=== PATIENT | male | born 1935 | race Hispanic/Latino ===

== ENCOUNTER 2022-03-11 14:48 | Inpatient (IN) | payer MEDICARE ==
[2022-03-11 15:53] LABS: #Eosinphils 0.1 thou/uL (0.0-0.7); #Lymphocytes 1.1 thou/uL (1.20-3.40); #Monocytes 0.8 thou/uL (0.11-0.59); #Neutrophils 7.5 thou/uL (1.40-6.50); %Basophils 0.3 % (0.0-1.0); %Eosinophils 0.5 % (0.0-10.0); %Lymphocytes 11.9 % (21.0-51.0); %Monocytes 8.6 % (0.0-10.0); %Neutrophils 78.7 % (42.0-75.0); Hemoglobin 16.4 g/dL (14.0-18.0); Mean Corpuscular HGB CONC 31.2 g/dL (32.0-36.0); Mean Corpuscular Hemoglobin 33.1 pg (27.0-31.0); Mean Platelet Volume 7.6 fL (7.4-10.4); Platelet Count 120 thou/uL (130-400); RBC Distribution Width 13.4 % (11.5-14.5); Red Blood Cell (RBC) Count 4.96 mill/uL (4.70-6.10); White Blood Cell (WBC) Count 9.6 thou/uL (4.8-10.8)
[2022-03-11 16:01] LABS: INR-International Normal Ratio 1.7; Prothrombin Time 20.2 sec (12.0-14.7)
[2022-03-11 16:13] LABS: ALT (SGPT) 34 U/L (8-55); AST (SGOT) 151 U/L (5-34); Albumin 3.4 g/dL (3.4-4.8); Alkaline Phosphatase 435 U/L (40-110); Anion Gap 15 mmol/L (10-20); BUN (Urea Nitrogen) 14 mg/dL (8.4-25.7); Bilirubin, Total 3.1 mg/dL (0.2-1.2); Calc. Creatinine Clearance 0 mL/min (70-130); Carbon Dioxide 28 mmol/L (23-31); Chloride 96 mmol/L (98-107); Glucose 119 mg/dL (83-110); Protein, Total 7.4 g/dL (5.8-8.1); Sodium 134 mmol/L (136-145)
[2022-03-11 16:14] LABS: MDiff Complete? YES; Macrocytosis SLIGHT = 6-15 cells (100X) (0-5/hpf); Platelet Morphology Comment Appears Decreased; Polychromasia SLIGHT = 2-3 cells (100X) (0-2/hpf)
[2022-03-11 16:53] LABS: CKMB 1.9 ng/mL (0-6.6)
[2022-03-11 17:23] LABS: Bilirubin 1+ (Negative); Blood, Urine Negative (Negative); Glucose, Urine (Dipstick) Normal (Negative); Ketone, Urine 20 mg/dL (Negative); Leukocyte 500 Leu/uL (Negative); Nitrite Negative (Negative); Protein, Urine (Dipstick) 50 mg/dL (Neg-Trace); RBC/HPF 0-3 HPF (0-3); Specific Gravity, Urine 1.028 (1.002-1.036); Squamous Epithelial 0-3 HPF (0-3); Urobilinogen 6 mg/dL (Less than 2); pH, Urine 5.5 (5.0-9.0)
[2022-03-11 17:25] LABS: Bacteria/HPF 1+ HPF (None Seen); Clarity Cloudy (Clear)
[2022-03-11] MEDS ORDERED: cefTRIAXone\\ROCEPHIN 1 GM VIAL ONE (17:38)
[2022-03-11] MEDS ORDERED: Azithromycin 500 MG VIAL ONE (18:56)
[2022-03-11] MEDS ORDERED: Azithromycin 500 MG in Sodium Chloride 0.9% 250 ML 250 ML IVPB SCH (19:15)
[2022-03-11] MEDS ORDERED: Ondansetron PF 4 MG/2 ML Vial IVP PRN (20:20)
[2022-03-11] MEDS ORDERED: Ondansetron ODT 4 MG TAB PO PRN (20:20)
[2022-03-11] MEDS ORDERED: HumaLOG 300 UNITS/3 ML VIAL SC PRN ×2 (20:20)
[2022-03-11] MEDS ORDERED: Dextrose 50% Abboject 50 ML SYRINGE SLOW IVP PRN (20:20)
[2022-03-11] MEDS ORDERED: Acetaminophen 650 MG Suppository PR PRN (20:20)
[2022-03-11] MEDS ORDERED: Dextrose 5% in Water 1,000 ML IV PRN (20:20)
[2022-03-11 20:37] LABS: Troponin I 0.027 ng/mL (< 0.028)
[2022-03-11 20:48] VITALS: BMI 27.3
[2022-03-11 22:46] LABS: Troponin I 0.031 ng/mL (< 0.028)
[2022-03-11] MEDS ORDERED: Apixaban 5 MG TAB PO SCH (23:00)
[2022-03-12 05:28] LABS: #Eosinphils 0.1 thou/uL (0.0-0.7); #Lymphocytes 1.2 thou/uL (1.20-3.40); #Monocytes 0.9 thou/uL (0.11-0.59); #Neutrophils 6.8 thou/uL (1.40-6.50); %Basophils 0.2 % (0.0-1.0); %Eosinophils 1.1 % (0.0-10.0); %Lymphocytes 13.5 % (21.0-51.0); %Monocytes 9.8 % (0.0-10.0); %Neutrophils 75.4 % (42.0-75.0); Hemoglobin 14.8 g/dL (14.0-18.0); Mean Corpuscular HGB CONC 32.9 g/dL (32.0-36.0); Mean Corpuscular Hemoglobin 34.8 pg (27.0-31.0); Mean Platelet Volume 7.4 fL (7.4-10.4); Platelet Count 98 thou/uL (130-400); RBC Distribution Width 13.4 % (11.5-14.5); Red Blood Cell (RBC) Count 4.26 mill/uL (4.70-6.10)
[2022-03-12 05:43] LABS: Anion Gap 11 mmol/L (10-20); BUN (Urea Nitrogen) 12 mg/dL (8.4-25.7); Calc. Creatinine Clearance 69 mL/min (70-130); Calcium 9.5 mg/dL (7.8-10.44); Carbon Dioxide 24 mmol/L (23-31); Chloride 100 mmol/L (98-107); Glucose 83 mg/dL (83-110); Potassium 4.2 mmol/L (3.5-5.1); Sodium 131 mmol/L (136-145)
[2022-03-12] MEDS: Levothyroxine Sodium 100 MCG TAB PO SCH (06:07)
[2022-03-12] MEDS ORDERED: Enoxaparin Sodium 40 MG/0.4 ML SYRINGE SC SCH (09:00)
[2022-03-12] MEDS: Apixaban 5 MG TAB PO SCH ×3 (10:00→21:48)
[2022-03-12 12:15] LABS: RBC Count-Automated (BF) 263 /cu.mm; WBC/Nucleated-Auto (BF) 188 /cu.mm
[2022-03-12 12:21] LABS: SARS-CoV-2 PCR by NAA Not Detected (NotDetected)
[2022-03-12 12:35] LABS: Body Fluid Source Ascites Body Fluid; Clarity Clear (Clear); Tube # EDTA
[2022-03-12 12:36] LABS: BF Color Yellow
[2022-03-12 12:37] LABS: BF Segmented Neutrophils 4 %; Cell Count Non Hematic 49 %; Lymphocytes 47 %
[2022-03-12] MEDS ORDERED: Azithromycin 500 MG in Sodium Chloride 0.9% 250 ML 250 ML IVPB SCH (18:00)
[2022-03-12] MEDS: cefTRIAXone\\ROCEPHIN 1 GM in Sodium Chloride 0.9% 100 ML IVPB SCH (19:42)
[2022-03-12] MEDS: Atorvastatin Calcium 10 MG TAB PO SCH (21:03)
[2022-03-13] MEDS: Levothyroxine Sodium 100 MCG TAB PO SCH (06:46)
[2022-03-13] MEDS: Acetaminophen 325 MG TAB PO PRN (13:18)
[2022-03-13] MEDS ORDERED: Azithromycin 500 MG in Sodium Chloride 0.9% 250 ML 250 ML IVPB SCH (18:00)
[2022-03-13] MEDS: cefTRIAXone\\ROCEPHIN 1 GM in Sodium Chloride 0.9% 100 ML IVPB SCH (18:40)
[2022-03-13] MEDS: Atorvastatin Calcium 10 MG TAB PO SCH (20:36)
[2022-03-13] MEDS: Azithromycin 500 MG in Sodium Chloride 0.9% 250 ML 250 ML IVPB SCH (21:55)
[2022-03-14] MEDS: Levothyroxine Sodium 100 MCG TAB PO SCH (05:27)
[2022-03-14 05:31] LABS: ALT (SGPT) 29 U/L (8-55); AST (SGOT) 142 U/L (5-34); Albumin 2.6 g/dL (3.4-4.8); Alkaline Phosphatase 346 U/L (40-110); Anion Gap 13 mmol/L (10-20); BUN (Urea Nitrogen) 12 mg/dL (8.4-25.7); Bilirubin, Total 2.5 mg/dL (0.2-1.2); Calc. Creatinine Clearance 71 mL/min (70-130); Calcium 9.3 mg/dL (7.8-10.44); Carbon Dioxide 23 mmol/L (23-31); Chloride 101 mmol/L (98-107); Glucose 72 mg/dL (83-110); Protein, Total 5.6 g/dL (5.8-8.1); Sodium 133 mmol/L (136-145)
[2022-03-14] MEDS: cefTRIAXone\\ROCEPHIN 1 GM in Sodium Chloride 0.9% 100 ML IVPB SCH (17:47)
[2022-03-14] MEDS: Atorvastatin Calcium 10 MG TAB PO SCH (20:42)
[2022-03-14] MEDS: Azithromycin 500 MG in Sodium Chloride 0.9% 250 ML 250 ML IVPB SCH (20:43)
[2022-03-15 04:43] LABS: Alpha-Fetoprotein,Tumor Marker 3.9 ng/mL (0.89-8.78)
[2022-03-15] MEDS: Levothyroxine Sodium 100 MCG TAB PO SCH (06:20)
[2022-03-15] MEDS: cefTRIAXone\\ROCEPHIN 1 GM in Sodium Chloride 0.9% 100 ML IVPB SCH (17:06)
[2022-03-15] MEDS: Lidocaine 4% Topical Sol 50 ML BOT TOP SCH (20:43)
[2022-03-15] MEDS: Atorvastatin Calcium 10 MG TAB PO SCH (20:43)
[2022-03-15] MEDS: Azithromycin 500 MG in Sodium Chloride 0.9% 250 ML 250 ML IVPB SCH (20:50)
[2022-03-16] MEDS: Levothyroxine Sodium 100 MCG TAB PO SCH (05:29)
[2022-03-16] MEDS: Lidocaine 4% Topical Sol 50 ML BOT TOP SCH ×3 (08:27→20:52)
[2022-03-16] MEDS: cefTRIAXone\\ROCEPHIN 1 GM in Sodium Chloride 0.9% 100 ML IVPB SCH (17:17)
[2022-03-16] MEDS: Azithromycin 500 MG in Sodium Chloride 0.9% 250 ML 250 ML IVPB SCH (20:48)
[2022-03-16] MEDS: Acetaminophen 325 MG TAB PO PRN (20:49)
[2022-03-16] MEDS: Atorvastatin Calcium 10 MG TAB PO SCH (20:49)
[2022-03-17] MEDS: Levothyroxine Sodium 100 MCG TAB PO SCH (06:13)
[2022-03-17] MEDS: Lidocaine 4% Topical Sol 50 ML BOT TOP SCH ×3 (08:01→21:06)
[2022-03-17 08:09] LABS: INR-International Normal Ratio 1.4; Prothrombin Time 17.7 sec (12.0-14.7)
[2022-03-17 08:18] LABS: Mean Corpuscular HGB CONC 32.2 g/dL (32.0-36.0); Mean Corpuscular Hemoglobin 34.1 pg (27.0-31.0); RBC Distribution Width 13.5 % (11.5-14.5); Red Blood Cell (RBC) Count 4.41 mill/uL (4.70-6.10)
[2022-03-17 08:19] LABS: ALT (SGPT) 36 U/L (8-55); AST (SGOT) 167 U/L (5-34); Albumin 2.6 g/dL (3.4-4.8); Alkaline Phosphatase 439 U/L (40-110); Anion Gap 14 mmol/L (10-20); BUN (Urea Nitrogen) 14 mg/dL (8.4-25.7); Bilirubin, Total 2.6 mg/dL (0.2-1.2); Calc. Creatinine Clearance 63 mL/min (70-130); Calcium 9.1 mg/dL (7.8-10.44); Carbon Dioxide 21 mmol/L (23-31); Chloride 101 mmol/L (98-107); Globulin 3.1 g/dL (2.4-3.5); Glucose 75 mg/dL (83-110); Potassium 4.3 mmol/L (3.5-5.1); Protein, Total 5.7 g/dL (5.8-8.1); Sodium 132 mmol/L (136-145)
[2022-03-17 08:29] LABS: #Eosinphils 0.1 thou/uL (0.0-0.7); #Lymphocytes 1.1 thou/uL (1.20-3.40); #Monocytes 0.8 thou/uL (0.11-0.59); #Neutrophils 8.3 thou/uL (1.40-6.50); %Basophils 0.3 % (0.0-1.0); %Eosinophils 0.8 % (0.0-10.0); %Monocytes 7.7 % (0.0-10.0); %Neutrophils 80.2 % (42.0-75.0); Mean Platelet Volume 7.9 fL (7.4-10.4); Platelet Count 100 thou/uL (130-400); Platelet Morphology Comment Appears Decreased; White Blood Cell (WBC) Count 10.3 thou/uL (4.8-10.8)
[2022-03-17] MEDS ORDERED: Senokot 8.6 MG TAB PO PRN (11:13)
[2022-03-17] MEDS ORDERED: Senokot 8.6 MG TAB PO SCH (11:15)
[2022-03-17] MEDS: cefTRIAXone\\ROCEPHIN 1 GM in Sodium Chloride 0.9% 100 ML IVPB SCH (17:09)
[2022-03-17] MEDS: Atorvastatin Calcium 10 MG TAB PO SCH (21:05)
[2022-03-17] MEDS: Azithromycin 500 MG in Sodium Chloride 0.9% 250 ML 250 ML IVPB SCH (21:05)
[2022-03-18] MEDS: Levothyroxine Sodium 100 MCG TAB PO SCH (05:53)
[2022-03-18] MEDS: Acetaminophen 325 MG TAB PO PRN ×2 (07:55→15:43)
[2022-03-18] MEDS: Lidocaine 4% Topical Sol 50 ML BOT TOP SCH ×3 (08:48→21:57)
[2022-03-18] MEDS ORDERED: Fentanyl 100 MCG/2 ML VIAL ONE (10:42)
[2022-03-18] MEDS ORDERED: Sodium Bicarbonate 2.5 MEQ/5 ML VIAL ONE (10:42)
[2022-03-18] MEDS ORDERED: Midazolam HCl 2 mg/2 ml Vial ONE (10:42)
[2022-03-18 15:23] LABS: RBC Count-Automated (BF) 743 /cu.mm; WBC/Nucleated-Auto (BF) 103 /cu.mm
[2022-03-18 15:41] LABS: BF Color Yellow; Body Fluid Source Ascites Body Fluid; Clarity Hazy (Clear); Tube # EDTA
[2022-03-18 15:44] LABS: BF Segmented Neutrophils 12 %; Cell Count Non Hematic 55 %; Lymphocytes 33 %
[2022-03-18] MEDS: cefTRIAXone\\ROCEPHIN 1 GM in Sodium Chloride 0.9% 100 ML IVPB SCH (18:21)
[2022-03-18] MEDS: Azithromycin 500 MG in Sodium Chloride 0.9% 250 ML 250 ML IVPB SCH (21:53)
[2022-03-18] MEDS: Atorvastatin Calcium 10 MG TAB PO SCH (21:57)
[2022-03-18 23:09] LABS: SARS-CoV-2 PCR by NAA Not Detected (NotDetected)
[2022-03-19] MEDS: Levothyroxine Sodium 100 MCG TAB PO SCH (06:06)
[2022-03-19] MEDS: Acetaminophen 325 MG TAB PO PRN (09:59)
[2022-03-19 10:01] LABS: Hemoglobin 16.2 g/dL (14.0-18.0)
[2022-03-19] MEDS: Lidocaine 4% Topical Sol 50 ML BOT TOP SCH (10:04)
[2022-03-19 12:12] VITALS: BP 121/76; TEMP 97.2
== END 2022-03-19 13:30 | disposition home or self-care (01) | DRG 435 ==
LOC: ERS 14:48 → 2SW 18:46 → OBSVTOIN 03-13 12:01 → MSONC 03-14 17:18
PROVIDERS: ADMIT Internal Medicine; ATTEND Internal Medicine
PROC: 0W9G3ZZ Drainage of Peritoneal Cavity, Percutaneous Approach (ICD-10-PCS; 2022-03-12)
PROC: 0FB23ZX Excision of Left Lobe Liver, Percutaneous Approach, Diagnostic (ICD-10-PCS; principal; 2022-03-19)
PROC: 0W9G3ZZ Drainage of Peritoneal Cavity, Percutaneous Approach (ICD-10-PCS; 2022-03-19)
DX: C78.7 Secondary malignant neoplasm of liver and intrahepatic bile duct (principal); J18.9 Pneumonia, unspecified organism; R04.2 Hemoptysis; K76.6 Portal hypertension; C79.51 Secondary malignant neoplasm of bone; R18.0 Malignant ascites; Z20.822 Contact with and (suspected) exposure to COVID-19; C80.1 Malignant (primary) neoplasm, unspecified; E11.9 Type 2 diabetes mellitus without complications; I10 Essential (primary) hypertension; E03.9 Hypothyroidism, unspecified; I25.10 Atherosclerotic heart disease of native coronary artery without angina pectoris; R74.01 Elevation of levels of liver transaminase levels; R01.1 Cardiac murmur, unspecified; D69.6 Thrombocytopenia, unspecified; K74.60 Unspecified cirrhosis of liver; I99.8 Other disorder of circulatory system; M77.31 Calcaneal spur, right foot; M77.32 Calcaneal spur, left foot; Z28.21 Immunization not carried out because of patient refusal; Z95.1 Presence of aortocoronary bypass graft; Z79.899 Other long term (current) drug therapy; Z79.01 Long term (current) use of anticoagulants; Z79.890 Hormone replacement therapy; Z79.84 Long term (current) use of oral hypoglycemic drugs
CPT/HCPCS: 36415; 36416; 47000; 49083; 71045; 71260; 76705; 77002; 80048; 80053; 81003; 81015; 82042; 82105; 82378; 82553; 83605; 83690; 84157; 84484; 85014; 85018; 85025; 85060; 85610; 85730; 86301; 86304; 86850; 86900; 86901; 87040; 87070; 87086; 87205; 88112; 88305; 88307; 88313; 88333; 88341; 88342; 89051; 93005; 93923; 96365; 96366; 96367; G0378; J0456; J0696; J2250; J3010; J3490; J7050; U0003; U0005

== ENCOUNTER 2022-04-01 08:09 | Day surgery (SDC) | payer MEDICARE ==
[2022-03-29 08:55] VITALS: BMI 27.3
[2022-04-01] MEDS ORDERED: Sodium Bicarbonate 2.5 MEQ/5 ML VIAL ONE (08:37)
[2022-04-01] MEDS ORDERED: Lidocaine 1% PF 5 ML VIAL ONE (08:37)
[2022-04-01 09:25] VITALS: BP 144/73; TEMP 97.8
== END 2022-04-01 09:35 | disposition home or self-care (01) ==
LOC: ULT 08:09
PROVIDERS: ATTEND Internal Medicine Hematology & Oncology
PROC: 0W9G3ZZ Drainage of Peritoneal Cavity, Percutaneous Approach (ICD-10-PCS; principal; 2022-04-01)
DX: C80.1 Malignant (primary) neoplasm, unspecified (principal); C78.7 Secondary malignant neoplasm of liver and intrahepatic bile duct; R18.0 Malignant ascites; E10.9 Type 1 diabetes mellitus without complications; E78.00 Pure hypercholesterolemia, unspecified; E07.9 Disorder of thyroid, unspecified; Z79.899 Other long term (current) drug therapy; Z95.1 Presence of aortocoronary bypass graft
CPT/HCPCS: 49083

== ENCOUNTER 2022-04-08 08:34 | Inpatient (IN) | payer MEDICARE ==
[2022-04-08 09:27] LABS: #Lymphocytes 1.2 thou/uL (1.20-3.40); #Monocytes 0.8 thou/uL (0.11-0.59); #Neutrophils 10.7 thou/uL (1.40-6.50); %Basophils 0.1 % (0.0-1.0); %Eosinophils 0.2 % (0.0-10.0); %Lymphocytes 9.2 % (21.0-51.0); %Monocytes 6.1 % (0.0-10.0); %Neutrophils 84.5 % (42.0-75.0); Hemoglobin 17.1 g/dL (14.0-18.0); Mean Corpuscular HGB CONC 31.7 g/dL (32.0-36.0); Mean Platelet Volume 8.9 fL (7.4-10.4); Platelet Count 130 thou/uL (130-400); RBC Distribution Width 15.8 % (11.5-14.5); Red Blood Cell (RBC) Count 5.01 mill/uL (4.70-6.10); White Blood Cell (WBC) Count 12.6 thou/uL (4.8-10.8)
[2022-04-08 09:47] LABS: ALT (SGPT) 73 U/L (8-55); AST (SGOT) 229 U/L (5-34); Albumin 2.7 g/dL (3.4-4.8); Alkaline Phosphatase 618 U/L (40-110); Anion Gap 21 mmol/L (10-20); BUN (Urea Nitrogen) 53 mg/dL (8.4-25.7); Bilirubin, Total 10.7 mg/dL (0.2-1.2); Calc. Creatinine Clearance 0 mL/min (70-130); Calcium 9.1 mg/dL (7.8-10.44); Carbon Dioxide 19 mmol/L (23-31); Chloride 95 mmol/L (98-107); Globulin 4.3 g/dL (2.4-3.5); Glucose 94 mg/dL (83-110); INR-International Normal Ratio 1.3; Magnesium 2.3 mg/dL (1.6-2.6); PTT 32.6 sec (22.9-36.1); Potassium 5.5 mmol/L (3.5-5.1); Prothrombin Time 15.9 sec (12.0-14.7); Sodium 129 mmol/L (136-145)
[2022-04-08 10:28] LABS: CKMB 3.1 ng/mL (0-6.6)
[2022-04-08] MEDS ORDERED: HYDROcodone/Acetaminophen 5/325 mg Tablet PO PRN (11:55)
[2022-04-08] MEDS ORDERED: Acetaminophen 325 MG TAB PO PRN (11:55)
[2022-04-08] MEDS ORDERED: Guaifenesin DM 100-10/5 ML UDCUP PO PRN (11:55)
[2022-04-08] MEDS ORDERED: Ondansetron PF 4 MG/2 ML Vial IVP PRN (11:55)
[2022-04-08] MEDS ORDERED: Ondansetron ODT 4 MG TAB PO PRN (11:55)
[2022-04-08] MEDS ORDERED: Senokot S 8.6-50 MG TAB PO PRN (11:55)
[2022-04-08] MEDS ORDERED: Azithromycin 500 MG VIAL ONE (11:58)
[2022-04-08] MEDS ORDERED: Cefepime 2 GM VIAL ONE (11:58)
[2022-04-08] MEDS ORDERED: Morphine 2 MG/ML VIAL SLOW IVP PRN (11:59)
[2022-04-08] MEDS ORDERED: HYDROcodone/Acetaminophen 10/325 mg Tablet PO PRN (11:59)
[2022-04-08] MEDS ORDERED: Bisacodyl 10 MG SUPP PR SCH (12:15)
[2022-04-08 12:39] LABS: Lactic Acid 2.6 mmol/L (0.5-2.2)
[2022-04-08 12:47] LABS: Troponin I 0.044 ng/mL (< 0.028)
[2022-04-08] MEDS ORDERED: Vancomycin 1 GM/200 ML BAG ONE (12:50)
[2022-04-08] MEDS ORDERED: Sodium Bicarbonate 2.5 MEQ/5 ML VIAL ONE (14:47)
[2022-04-08] MEDS ORDERED: Lidocaine 1% PF 5 ML VIAL ONE (14:47)
[2022-04-08 15:04] VITALS: BMI 25.7
[2022-04-08] MEDS: Sodium Chloride 0.9% 1,000 ML IV SCH ×2 (15:10→18:29)
[2022-04-08 15:24] LABS: Troponin I 0.041 ng/mL (< 0.028)
[2022-04-08] MEDS ORDERED: ALPRAZolam 0.25 MG TAB PO PRN (21:23)
[2022-04-09 00:04] LABS: SARS-CoV-2 PCR by NAA Not Detected (NotDetected)
[2022-04-09] MEDS: Sodium Chloride 0.9% 1,000 ML IV SCH (05:30)
[2022-04-09 05:50] LABS: Hemoglobin 15.8 g/dL (14.0-18.0); Mean Corpuscular HGB CONC 32.3 g/dL (32.0-36.0); Mean Corpuscular Hemoglobin 34.6 pg (27.0-31.0); RBC Distribution Width 15.5 % (11.5-14.5); Red Blood Cell (RBC) Count 4.57 mill/uL (4.70-6.10); White Blood Cell (WBC) Count 9.9 thou/uL (4.8-10.8)
[2022-04-09 05:55] LABS: Anion Gap 17 mmol/L (10-20); BUN (Urea Nitrogen) 47 mg/dL (8.4-25.7); Calc. Creatinine Clearance 32 mL/min (70-130); Calcium 8.1 mg/dL (7.8-10.44); Carbon Dioxide 18 mmol/L (23-31); Chloride 101 mmol/L (98-107); Glucose 130 mg/dL (83-110); Potassium 4.7 mmol/L (3.5-5.1); Sodium 131 mmol/L (136-145)
[2022-04-09 06:11] LABS: #Eosinphils 0.1 thou/uL (0.0-0.7); #Lymphocytes 1.1 thou/uL (1.20-3.40); #Monocytes 0.8 thou/uL (0.11-0.59); %Basophils 0.1 % (0.0-1.0); %Eosinophils 0.8 % (0.0-10.0); %Lymphocytes 11.1 % (21.0-51.0); %Monocytes 7.6 % (0.0-10.0); %Neutrophils 80.4 % (42.0-75.0); MDiff Complete? YES; Macrocytosis SLIGHT = 6-15 cells (100X) (0-5/hpf); Mean Platelet Volume 9.3 fL (7.4-10.4); Platelet Count 72 thou/uL (130-400); Platelet Morphology Comment Appears Decreased
[2022-04-09 08:54] VITALS: BP 101/54; TEMP 97
== END 2022-04-09 13:50 | disposition hospice, home (50) | DRG 435 ==
LOC: ERS 08:34 → MSONC 14:13
PROVIDERS: ADMIT Internal Medicine; ATTEND Internal Medicine
PROC: 0W9G3ZZ Drainage of Peritoneal Cavity, Percutaneous Approach (ICD-10-PCS; principal; 2022-04-08)
PROC: 3E03329 Introduction of Other Anti-infective into Peripheral Vein, Percutaneous Approach (ICD-10-PCS; 2022-04-08)
DX: C22.7 Other specified carcinomas of liver (principal); A41.9 Sepsis, unspecified organism; K72.00 Acute and subacute hepatic failure without coma; N17.9 Acute kidney failure, unspecified; E87.1 Hypo-osmolality and hyponatremia; R18.0 Malignant ascites; C79.9 Secondary malignant neoplasm of unspecified site; R64 Cachexia; E87.2 Acidosis; Z51.5 Encounter for palliative care; Z66 Do not resuscitate; I10 Essential (primary) hypertension; K59.00 Constipation, unspecified; E03.9 Hypothyroidism, unspecified; E87.5 Hyperkalemia; E86.9 Volume depletion, unspecified; E11.40 Type 2 diabetes mellitus with diabetic neuropathy, unspecified; E05.90 Thyrotoxicosis, unspecified without thyrotoxic crisis or storm; Z20.822 Contact with and (suspected) exposure to COVID-19; Z72.89 Other problems related to lifestyle; Z95.1 Presence of aortocoronary bypass graft; Z87.01 Personal history of pneumonia (recurrent); Z79.899 Other long term (current) drug therapy; Z86.718 Personal history of other venous thrombosis and embolism; Z68.25 Body mass index [BMI] 25.0-25.9, adult
CPT/HCPCS: 36415; 49083; 71045; 80048; 80053; 82553; 83605; 83735; 84484; 85025; 85610; 85730; 87040; 93005; 96361; 96365; 96367; 96368; J0456; J0692; J3370; J7050; U0003; U0005